=== PATIENT | female | born 1970 | race Caucasian/White ===

== ENCOUNTER 2017-11-02 09:19 | Day surgery (SDC) | payer OTHER ==
[2017-10-27 10:44] LABS: APPEARANCE,URINE CLOUDY; BILIRUBIN,URINE NEGATIVE (NEGATIVE); COLOR,URINE YELLOW; GLUCOSE, URINE NEGATIVE (NEGATIVE); KETONES,URINE NEGATIVE (NEGATIVE); LEUKOCYTE ESTERASE,URINE NEGATIVE (NEGATIVE); NITRITE,URINE POSITIVE (NEGATIVE); PROTEIN,URINE NEGATIVE (NEGATIVE); URINE SPECIFIC GRAVITY 1.016; UROBILINOGEN,URINE NEGATIVE mg/dL (<2.0)
[2017-10-27 10:44] LABS: HEMATOCRIT 40.8 % (36.0-47.0); HEMOGLOBIN 13.7 g/dL (12.0-15.5); MEAN CORPUSCULAR HEMOGLOBIN 29.3 pg (27.0-33.4); MEAN CORPUSCULAR HGB CONC 33.6 g/dL (32.0-36.0); MEAN CORPUSCULAR VOLUME 87 fl (80-97); PLATELET COUNT 260 10^3/uL (150-450); RED BLOOD COUNT 4.67 10^6/uL (3.72-5.28); WHITE BLOOD COUNT 7.2 10^3/uL (4.0-10.5)
[2017-10-27 11:09] LABS: ALANINE AMINOTRANSFERASE 22 U/L (9-52); ALBUMIN 4.5 g/dL (3.5-5.0); ALKALINE PHOSPHATASE 74 U/L (38-126); ANION GAP 14 (5-19); ASPARTATE AMINO TRANSFERASE 21 U/L (14-36); BILIRUBIN,DIRECT 0.3 mg/dL (0.0-0.4); BILIRUBIN,TOTAL 0.4 mg/dL (0.2-1.3); BLOOD UREA NITROGEN 13 mg/dL (7-20); CARBON DIOXIDE 26 mmol/L (22-30); CHLORIDE 104 mmol/L (98-107); GLUCOSE 82 mg/dL (75-110); POTASSIUM 4.9 mmol/L (3.6-5.0); SODIUM 144.1 mmol/L (137-145); TOTAL PROTEIN 7.5 g/dL (6.3-8.2)
[~2017-11-02 09:19] MED LIST: CEFAZOLIN 1 GM/D5W RTU 1 GM/50 ML RTUPB IV PRN; LACTATED RINGERS 1000 ML IV PRN; LIDOCAINE 0.5% INJ-PF (5 MG/ML) 50 ML SDV SUBCUT PRN; LIDOCAINE 1%/EPINEPHRINE INJ 20 ML VIAL ONE; MAGNESIUM CITRATE 296 ML BOTTLE PO ONE; RINGERS SOLUTION,LACTATED 1,000 ML IV PRN; SCOPOLAMINE HYDROBROMIDE 1.5 MG PATCH.TD72 TD PRN
[2017-11-02] MEDS ORDERED: ACETAMINOPHEN 1,000 MG/100 ML RTUPB IV ONE ×2 (10:21→19:00)
[2017-11-02] MEDS ORDERED: FENTANYL CITRATE INJ/PF 250 MCG/5 ML AMPULE ONE (10:21)
[2017-11-02] MEDS ORDERED: PROPOFOL INJ 200 MG/20 ML VIAL IV ONE (10:21)
[2017-11-02] MEDS ORDERED: MIDAZOLAM 2 MG/2 ML INJ ONE (10:21)
[2017-11-02] MEDS ORDERED: ESTROGENS,CONJUGATED 0.625 MG/1 GM 30 GM TUBE PV PRN (11:25)
[2017-11-02] MEDS ORDERED: FENTANYL CITRATE INJ/PF 100 MCG/2 ML AMPUL IV PRN ×3 (11:27)
[2017-11-02] MEDS ORDERED: PROMETHAZINE HCL INJ 25 MG/1 ML VIAL IV PRN ×2 (11:27)
[2017-11-02] MEDS ORDERED: OXYCODONE-ACETAMINOPHEN 5-325 MG TABLET PO PRN ×3 (11:27→14:23)
[2017-11-02] MEDS ORDERED: MEPERIDINE HCL/PF INJ 25 MG/1 ML DISP.SYRIN IV PRN (11:27)
[2017-11-02] MEDS ORDERED: DIPHENHYDRAMINE HCL 50 MG/ML VIAL IV PRN (11:27)
[2017-11-02] MEDS ORDERED: MORPHINE SULFATE 10 MG/ML INJ IV PRN ×2 (11:27→14:19)
[2017-11-02] MEDS ORDERED: PROMETHAZINE HCL INJ 25 MG/1 ML VIAL ONE (13:18)
[2017-11-02] MEDS ORDERED: IBUPROFEN 800 MG TABLET PO PRN (14:22)
[2017-11-02] MEDS ORDERED: ROCURONIUM BROMIDE INJ 50 MG/5 ML VIAL IV ONE (15:12)
[2017-11-02] MEDS ORDERED: SUCCINYLCHOLINE CHLORIDE INJ 200 MG/10 ML VIAL ONE (15:12)
[2017-11-02] MEDS ORDERED: NEOSTIGMINE METHYLSULFATE 10 MG/10 ML VIAL ONE (15:12)
[2017-11-02] MEDS ORDERED: ONDANSETRON HCL INJ/PF 4 MG/2 ML SDV ONE ×2 (15:12→16:44)
[2017-11-02] MEDS ORDERED: DEXAMETHASONE SOD PHOSPHATE INJ 4 MG/1 ML VIAL ONE (15:12)
[2017-11-02] MEDS ORDERED: GLYCOPYRROLATE 1 MG/5 ML SYRINGE ONE (15:12)
[2017-11-02] MEDS ORDERED: ACETAMINOPHEN 1,000 MG/100 ML RTUPB IV PRN (16:49)
[2017-11-02] MEDS ORDERED: ENOXAPARIN SODIUM INJ 30 MG/0.3 ML DISP.SYRIN SUBCUT ONE (17:00)
[2017-11-02] MEDS: KETOROLAC TROMETHAMINE INJ/PF 30 MG/1 ML SDV IV SCH (17:15)
[2017-11-02] MEDS ORDERED: ONDANSETRON HCL INJ/PF 4 MG/2 ML SDV IV ONE (17:30)
--- NOTE | 2017-11-02 19:45 | OPERATIVE REPORT E ---
Operative Report NAME: UMA MOTA : 1970 AGE: 47Y DATE OF SURGERY: 11/02/2017 ROOM: 213 PREOPERATIVE DIAGNOSIS: 1. ABNORMAL UTERINE BLEEDING. 2. PELVIC PRESSURE AND PAIN. 3. SLIGHT UTEROVAGINAL PROLAPSE. POSTOPERATIVE DIAGNOSIS: 1. ABNORMAL UTERINE BLEEDING. 2. PELVIC PRESSURE AND PAIN. 3. SLIGHT UTEROVAGINAL PROLAPSE. OPERATION: Robotic-assisted total laparoscopic hysterectomy with bilateral salpingectomy. SURGEON: RASHEL FITZPATRICK M.D. ANESTHESIA: RENETTA MARIE M.D. with general. FINDINGS: 1. A 14-16 week sized uterus that has a boggy, adenomyosis appearance, 2. Normal tubes and ovaries. 3. Fallopian tubes had evidence of bilateral tubal ligation. COMPLICATIONS: None. ESTIMATED BLOOD LOSS: 500 mL. TISSUE REMOVED OR ALTERED: 1. Uterus. 2. Cervix. 3. Fallopian tube x 2. PROCEDURE: Patient was taken to the operating room, prepared and draped in normal sterile fashion in a dorsal lithotomy position. Under sterile conditions, a Torres catheter was placed to gravity. A sterile speculum was then placed into the vagina and the cervix was prepped with Betadine. The cervix was grasped on the anterior lip with a single toothed tenaculum and the cervix was dilated to accommodate a large VCare. VCare was placed without difficulty and the tenaculum and speculum were removed. The gloves were changed and attention was turned to the upper portion of the case where an umbilical skin incision was made approximately 2 cm across and the underlying tissues were dissected down to the fascia. The fascia was then grasped with the 2 Kochers and excised with Osorio's and extended laterally with the Osorio's. The peritoneal cavity was entered bluntly and the GelPort was placed in the substance use fashion. A morcellation bag was then placed into the right paracolic gutter for use at the end of the case. The abdomen was insufflated with approximately 2 L of CO2 gas thru the air seal that was placed through the GelPort. The camera was introduced thru the camera port, the patient was placed into deep Trendelenburg, and the above findings were noted. Under direct visualization, two 5 mm ports were placed approximately 10 cm on either side of the umbilicus. The robot was docked and the monopolar scissors and the vessel sealer were applied to the robot and introduced into the peritoneal cavity. I then descrubbed and sat at the console where, beginning with the left adnexa, removed the left fallopian tube fragments and these were removed through the assistance port. The utero-ovarian ligament was then transected, freeing the ovary from the uterus. The round ligament was also transected using the vessel sealer and the rest of the uterine artery was coagulated and transected using the vessel sealer down to the level of the VCare located through the vaginal mucosa. The bladder flap was then started using monopolar scissors and dissected away from the cervix with blunt dissection. Turning my attention to the right adnexa, this procedure was repeated where the fallopian tube was removed with the monopolar scissors in the normal fashion and the fragments were removed through the assistance port. The utero-ovarian ligament was then transected and the uterine arteries were coagulated down to the level of the VCare located through the vaginal mucosa. The bladder flap was completed using the monopolar scissors and blunt dissection in a normal fashion. I continued to coagulate the uterine arteries on both sides bilaterally with the vessel sealer as needed until the VCare cup could be more easily located. I then began the colporrhaphy on the anterior aspect using the monopolar scissors. At one point during the colporrhaphy, it was noted that the vaginal mucosa was still quite thick so this was transected and the vessels were sealed off using the vessel sealer. I then completed the colporrhaphy using the monopolar scissors until the specimen was completely freed. Once the specimen was freed, this was placed into the posterior cul-de-sac and the instruments were changed. The Dru Needle pile driver operator was introduced as well as the *------* and the V-Loc was introduced through the assistance port. The V-Loc was then used to close the vaginal cuff in a normal fashion. The left cuff angle required an extra suture in order to become more hemostasis, as one of the vessels did appear to continue to have some bleeding. This was made hemostatic with the V-Loc and once the angle was closed, I did back suture several times to ensure good hemostasis and did maintain so. The V-Loc was then cut and the remnant was removed through the assistance port. I then inspected the ureters and found them to be both peristalsing in a normal fashion. There was no evidence of hydroureter along the path of the ureter. The morcellation bag was then located and brought down into the posterior cul-de-sac with the specimen. The morcellation bag silk suture ties were cut by the podiatrist assistant using Endo Nacho and the specimen was placed into the morcellation bag. I then rescrubbed and we undocked the robot and removed the GelPort cover and easily located the bag and brought the morcellation bag edge up through the GelPort. Then, using the C cut morcellation technique, morcellated the specimen out through the GelPort incision. Once this was completed, the morcellation bag was removed. The GelPort apparatus was also removed. The fascia was closed at this incision using 0 Vicryl and the skin was closed at all 3 incisions using 4-0 Vicryl. Patient tolerated procedure well. Sponge, lap, and needle counts were correct x2 and the patient was taken to recovery in stable condition. DICTATING PHYSICIAN: RASHEL FITZPATRICK M.D. [id number] PHY#: [id number] ID: [id number] JOB#: [id number] ACCT: [id number] cc:RASHEL FITZPATRICK M.D. >
[2017-11-03] MEDS: KETOROLAC TROMETHAMINE INJ/PF 30 MG/1 ML SDV IV SCH (02:16)
[2017-11-03 05:19] LABS: HEMATOCRIT 31.1 % (36.0-47.0); HEMOGLOBIN 10.6 g/dL (12.0-15.5); MEAN CORPUSCULAR HEMOGLOBIN 29.7 pg (27.0-33.4); MEAN CORPUSCULAR HGB CONC 34.2 g/dL (32.0-36.0); MEAN CORPUSCULAR VOLUME 87 fl (80-97); PLATELET COUNT 223 10^3/uL (150-450); RED BLOOD COUNT 3.58 10^6/uL (3.72-5.28); RED CELL DISTRIBUTION WIDTH 14.3 % (11.5-14.0); WHITE BLOOD COUNT 14.2 10^3/uL (4.0-10.5)
--- NOTE | 2017-11-03 08:24 | PDOC DISCHARGE SUMMARY ---
General - Admit/Disc Date/PCP Admission Date/Primary Care Provider: NIKHIL KENNEDY MD Discharge Date: 11/03/17 - Discharge Diagnosis (1) Abnormal uterine bleeding Is this a current diagnosis for this admission?: Yes (2) Chronic pelvic pain in female Is this a current diagnosis for this admission?: Yes (3) Uterus, adenomyosis Is this a current diagnosis for this admission?: Yes - Additional Information Home Medications: Aspirin [Aspirin 81 mg Chewable Tablet] 81 mg PO DAILY #30 tab.ec 10/14/13 Bupropion HCl [Wellbutrin Xl 300mg 24hr Tablet] 1 tab PO DAILY 10/27/17 History of Present Illness History of Present Illness: UMA MOTA is a 47 year old female Hospital Course Hospital Course: underwent RATLH w/ b/l salpingectomy. unremarkable post op course Physical Exam - Physical Exam Vital Signs: Temp Pulse Resp BP Pulse Ox 98.5 F 78 18 97/54 L 97 11/03/17 07:33 11/03/17 07:33 11/03/17 07:33 11/03/17 07:33 11/03/17 07:33 Intake & Output 11/02/17 11/03/17 11/04/17 06:59 06:59 06:59 Intake Total 3890 Output Total 1250 Balance 2640 Weight 97.7 kg General appearance: PRESENT: no acute distress, cooperative GI/Abdominal exam: PRESENT: soft, tenderness - appropriate for post op Result Laboratory Results: 11/03/17 05:07 10/27/17 09:58 11/03/17 05:07 WBC 14.2 H RBC 3.58 L Hgb 10.6 L Hct 31.1 L MCV 87 MCH 29.7 MCHC 34.2 RDW 14.3 H Plt Count 223 Plan Discharge Plan: discharge home with precautions. keep scheduled appt in 2 wks
[2017-11-03 09:17] VITALS: BP 99/54
== END 2017-11-03 09:35 | disposition home or self-care (01) ==
LOC: OROUT 09:19 → 2N 14:05 → OROUT 11-03 09:35
PROVIDERS: ATTEND Obstetrics & Gynecology
DX: N88.8 Other specified noninflammatory disorders of cervix uteri (principal); D25.1 Intramural leiomyoma of uterus; N83.8 Other noninflammatory disorders of ovary, fallopian tube and broad ligament; N93.9 Abnormal uterine and vaginal bleeding, unspecified; G89.29 Other chronic pain; R10.2 Pelvic and perineal pain; N80.0 Endometriosis of uterus; N92.6 Irregular menstruation, unspecified; N81.4 Uterovaginal prolapse, unspecified; F17.210 Nicotine dependence, cigarettes, uncomplicated; Z79.82 Long term (current) use of aspirin; Z79.899 Other long term (current) drug therapy; Z86.718 Personal history of other venous thrombosis and embolism
CPT/HCPCS: 58571; S2900; 36415; 80053; 81001; 81025; 840; 85027; 86850; 86900; 86901; 88307; 88311; J0131; J0330; J0690; J1100; J1650; J1885; J2250; J2405; J2550; J2704; J3010; J3490; J7120

== ENCOUNTER 2018-05-17 09:35 | Emergency (ER) | payer OTHER ==
--- NOTE | 2018-05-17 10:01 | ER Document Report ---
ED Medical Screen (RME) - General Chief Complaint: Abdominal Pain Stated Complaint: ABDOMINAL PAIN Time Seen by Provider: 05/17/18 09:54 TRAVEL OUTSIDE OF THE [place] IN LAST 30 DAYS: No - Related Data Allergies/Adverse Reactions: No Known Allergies Allergy (Verified 05/17/18 09:35) Past Medical History - Past Medical History Cardiac Medical History: Denies: Hx Coronary Artery Disease, Hx Heart Attack, Hx Hypertension Pulmonary Medical History: Reports: Hx Pneumonia Denies: Hx Asthma, Hx Bronchitis, Hx COPD Neurological Medical History: Denies: Hx Cerebrovascular Accident, Hx Seizures Musculoskeltal Medical History: Reports Hx Arthritis - left knee Past Surgical History: Reports: Hx Tubal Ligation - Immunizations Hx Diphtheria, Pertussis, Tetanus Vaccination: Yes History of Influenza Vaccine for 02/2017 - 07/2017 Season: No Physical Exam - Vital signs Vitals: Temp Pulse Resp BP Pulse Ox 98.9 F 70 16 125/88 H 98 05/17/18 09:37 05/17/18 09:37 05/17/18 09:37 05/17/18 09:37 05/17/18 09:37 Course - Re-evaluation Re-evalutation: 05/17/18 10:00 48-year-old female presents for evaluation of persistent upper abdominal pain over the last week which is been worsening. It is postural does worsen when she bends forward. Abdomen is diffusely tender with no focal rebound or guarding. Negative Peralta sign. I have seen and performed a rapid medical screening examination on this patient, workup has been initiated however there will require further evaluation reassessment and disposition determination from a secondary provider. - Vital Signs Vital signs: Temp Pulse Resp BP Pulse Ox 98.9 F 70 16 125/88 H 98 05/17/18 09:37 05/17/18 09:37 05/17/18 09:37 05/17/18 09:37 05/17/18 09:37 Doctor's Discharge - Discharge Referrals: NIKHIL KENNEDY MD [Primary Care Provider] - Follow up as needed
[2018-05-17 10:41] LABS: APPEARANCE,URINE SLIGHTLY-CLOUDY; BILIRUBIN,URINE NEGATIVE (NEGATIVE); COLOR,URINE YELLOW; GLUCOSE, URINE NEGATIVE (NEGATIVE); KETONES,URINE NEGATIVE (NEGATIVE); LEUKOCYTE ESTERASE,URINE NEGATIVE (NEGATIVE); NITRITE,URINE NEGATIVE (NEGATIVE); PROTEIN,URINE NEGATIVE (NEGATIVE); URINE SPECIFIC GRAVITY 1.009; UROBILINOGEN,URINE NEGATIVE mg/dL (<2.0)
[2018-05-17 10:44] LABS: ABSOLUTE BASOPHILS # (AUTO) 0.1 10^3/uL (0.0-0.2); ABSOLUTE EOSINOPHILS # (AUTO) 0.2 10^3/uL (0.0-0.6); ABSOLUTE LYMPHOCYTES (AUTO) 2.3 10^3/uL (0.5-4.7); ABSOLUTE MONOCYTES (AUTO) 0.7 10^3/uL (0.1-1.4); ABSOLUTE NEUT (AUTO) 6.8 10^3/uL (1.7-8.2); BASOPHILS % (AUTO) 0.6 % (0-2); EOSINOPHILS % (AUTO) 1.6 % (0-6); HEMATOCRIT 41.3 % (36.0-47.0); LYMPHOCYTES % (AUTO) 23.3 % (13-45); MEAN CORPUSCULAR HEMOGLOBIN 29.3 pg (27.0-33.4); MEAN CORPUSCULAR HGB CONC 33.9 g/dL (32.0-36.0); MEAN CORPUSCULAR VOLUME 87 fl (80-97); MONOCYTES % (AUTO) 6.7 % (3-13); PLATELET COUNT 228 10^3/uL (150-450); RED BLOOD COUNT 4.78 10^6/uL (3.72-5.28); SEGMENTED NEUTROPHILS % (AUTO) 67.8 % (42-78); TOTAL CELLS COUNTED % (AUTO) 100 %; WHITE BLOOD COUNT 10.1 10^3/uL (4.0-10.5)
[2018-05-17 11:00] LABS: ALANINE AMINOTRANSFERASE 17 U/L (9-52); ALBUMIN 4.2 g/dL (3.5-5.0); ALKALINE PHOSPHATASE 67 U/L (38-126); ANION GAP 6 (5-19); ASPARTATE AMINO TRANSFERASE 19 U/L (14-36); BILIRUBIN,DIRECT 0.2 mg/dL (0.0-0.4); BILIRUBIN,TOTAL 0.6 mg/dL (0.2-1.3); BLOOD UREA NITROGEN 11 mg/dL (7-20); CALCIUM 9.4 mg/dL (8.4-10.2); CARBON DIOXIDE 28 mmol/L (22-30); CHLORIDE 105 mmol/L (98-107); GLUCOSE 100 mg/dL (75-110); POTASSIUM 4.1 mmol/L (3.6-5.0); TOTAL PROTEIN 6.8 g/dL (6.3-8.2)
[2018-05-17] MEDS ORDERED: MAG HYDROX/AL HYDROX/SIMETH SUSP 30 ML UDCUP PO ONE (11:27)
[2018-05-17] MEDS ORDERED: METOCLOPRAMIDE HCL ORAL SOLN 10 MG/10 ML UDCUP PO ONE (11:27)
[2018-05-17] MEDS ORDERED: LIDOCAINE 2% VISCOUS SOLN 20 ML UDCUP PO ONE (11:27)
--- NOTE | 2018-05-17 11:28 | ER Document Report ---
ED General - General Chief Complaint: Abdominal Pain Stated Complaint: ABDOMINAL PAIN Time Seen by Provider: 05/17/18 09:54 Notes: Patient is a 48-year-old female that presents to the emergency department for chief complaint of epigastric abdominal pain. Patient reports having on and off epigastric pain she describes as sharp and aching, the last approximately 30 minutes and then go away on its own, and will come and go over periods of time, she states it is somewhat better than it has been. It has been going on for approximately 10 days now. She denies prior history of abdominal issues, denies associated nausea, vomiting, diarrhea. She states has been having normal bowel movements, denies any black or bloody stool. She also denies any recent fevers, chills, night sweats, chest pain, shortness of breath or difficulty breathing. Past Medical History: Denies chronic medical conditions Past Surgical History: Hysterectomy Social History: Admits to occasional alcohol use, denies tobacco or illicit drug use. Family History: Reviewed and noncontributory for presenting illness Allergies: Reviewed, see documented allergy list. REVIEW OF SYSTEMS: Other than noted above, the 12 point review of systems was reviewed with the patient and were negative, all pertinent findings are included in the HPI. PHYSICAL EXAMINATION: Vital signs reviewed, nursing noted reviewed. GENERAL: Well-appearing, well-nourished and in no acute distress. HEAD: Atraumatic, normocephalic. EYES: Eyes appear normal, extraocular movements intact, sclera anicteric, conjunctiva are normal. ENT: nares patent, oropharynx clear without exudates. Moist mucous membranes. NECK: Normal range of motion, supple without lymphadenopathy LUNGS: Breath sounds clear to auscultation bilaterally and equal. No wheezes rales or rhonchi. HEART: Regular rate and rhythm without murmurs ABDOMEN: Soft, obese, with mild epigastric tenderness with palpation, normoactive bowel sounds. No rebound, guarding, or rigidity. No masses appreciated. EXTREMITIES: Nontender, good range of motion, no pitting or edema. NEUROLOGICAL: No focal neurological deficits. Moves all extremities spontaneously Motor and sensory grossly intact on exam. PSYCH: Normal mood, normal affect. SKIN: Warm, Dry, normal turgor, no rashes or lesions noted on exposed skin TRAVEL OUTSIDE OF THE [place] IN LAST 30 DAYS: No - Related Data Allergies/Adverse Reactions: No Known Allergies Allergy (Verified 05/17/18 09:35) Past Medical History - Social History Smoking Status: Never Smoker Frequency of alcohol use: Social Drug Abuse: None Family History: CAD Patient has suicidal ideation: No Patient has homicidal ideation: No - Past Medical History Cardiac Medical History: Denies: Hx Coronary Artery Disease, Hx Heart Attack, Hx Hypertension Pulmonary Medical History: Reports: Hx Pneumonia Denies: Hx Asthma, Hx Bronchitis, Hx COPD Neurological Medical History: Denies: Hx Cerebrovascular Accident, Hx Seizures Renal/ Medical History: Denies: Hx Peritoneal Dialysis Musculoskeletal Medical History: Reports Hx Arthritis - left knee Past Surgical History: Reports: Hx Tubal Ligation - Immunizations Hx Diphtheria, Pertussis, Tetanus Vaccination: Yes Physical Exam - Vital signs Vitals: Temp Pulse Resp BP Pulse Ox 98.9 F 70 16 125/88 H 98 05/17/18 09:37 05/17/18 09:37 05/17/18 09:37 05/17/18 09:37 05/17/18 09:37 Course - Re-evaluation Re-evalutation: Patient seen and examined vital signs reviewed. Laboratory data and imaging were ordered as appropriate for the patient's presenting symptoms and complaint, with consideration of any critical or life threatening conditions that may be associated with their obtained history and exam as noted above. Patient was treated with GI cocktail Results were reviewed when available and demonstrated unremarkable blood work, x-ray of the abdomen was unremarkable as well nonspecific bowel gas pattern The patient was re-evaluated and was improved and stable Evaluation was most consistent with epigastric abdominal pain, possible gastritis versus peptic ulcer disease, no evidence of active bleeding, or perforation at this time, will prescribe omeprazole, have her follow-up with gastroenterology if her symptoms persist, patient was agreeable with this plan of care. Results were discussed with the patient at this point, after careful consideration I feel that that patient can be discharged from the emergency department, the patient was educated treatments and reasons to return to the emergency department based on their presumed diagnosis as noted above, they were advised to followup with a primary care physician in 2-3 days. Patient was agreeable to plan of care. *Note is created using voice recognition software and may contain spelling, syntax or grammatical errors. Laboratory 05/17/18 05/17/18 05/17/18 10:05 10:26 10:26 WBC 10.1 RBC 4.78 Hgb 14.0 Hct 41.3 MCV 87 MCH 29.3 MCHC 33.9 RDW 14.0 Plt Count 228 Seg Neutrophils % 67.8 Lymphocytes % 23.3 Monocytes % 6.7 Eosinophils % 1.6 Basophils % 0.6 Absolute Neutrophils 6.8 Absolute Lymphocytes 2.3 Absolute Monocytes 0.7 Absolute Eosinophils 0.2 Absolute Basophils 0.1 Sodium 139.0 Potassium 4.1 Chloride 105 Carbon Dioxide 28 Anion Gap 6 BUN 11 Creatinine 0.60 Est GFR ( Amer) > 60 Est GFR (Non-Af Amer) > 60 Glucose 100 Calcium 9.4 Total Bilirubin 0.6 Direct Bilirubin 0.2 Neonat Total Bilirubin Not Reportable Neonat Direct Bilirubin Not Reportable Neonat Indirect Bili Not Reportable AST 19 ALT 17 Alkaline Phosphatase 67 Total Protein 6.8 Albumin 4.2 Lipase 89.0 Urine Color YELLOW Urine Appearance SLIGHTLY-CLOUDY Urine pH 8.0 Ur Specific [place] 1.009 Urine Protein NEGATIVE Urine Glucose (UA) NEGATIVE Urine Ketones NEGATIVE Urine Blood NEGATIVE Urine Nitrite NEGATIVE Urine Bilirubin NEGATIVE Urine Urobilinogen NEGATIVE Ur Leukocyte Esterase NEGATIVE Urine WBC (Auto) 0 Urine RBC (Auto) 0 Urine Bacteria (Auto) 3+ Squamous Epi Cells Auto 1 Urine Mucus (Auto) RARE Urine Ascorbic Acid NEGATIVE Urine HCG, Qual NEGATIVE Abdomen X-Ray 05/17/18 11:28 IMPRESSION: NO RADIOGRAPHIC EVIDENCE FOR ACUTE ABDOMINAL DISEASE. - Vital Signs Vital signs: Temp Pulse Resp BP Pulse Ox 98.4 F 70 18 127/83 H 99 05/17/18 12:33 05/17/18 12:33 05/17/18 12:33 05/17/18 12:33 05/17/18 12:33 - Laboratory Result Diagrams: 05/17/18 10:26 05/17/18 10:26 Discharge - Discharge Clinical Impression: Epigastric pain Condition: Stable Disposition: HOME, SELF-CARE Instructions: Abdominal Pain ([facility]) Additional Instructions: Please follow-up with gastroenterology, and take the prescribed omeprazole 40 mg daily, to see if this will help with your symptoms. you ultimately may need what is called an EGD, or upper scope to see if you have inflammation or ulcers. Prescriptions: RX: Omeprazole 40 mg PO DAILY #30 capsule. Referrals: NIKHIL KENNEDY MD [Primary Care Provider] - Follow up as needed EMILY ORTIZ MD [ACTIVE STAFF] - Follow up in 3-5 days (gastroenterology )
--- NOTE | 2018-05-17 12:22 | RADIOLOGY REPORT (SQ) ---
EXAM DESCRIPTION: ABDOMEN 2 VIEWS COMPLETED DATE/TIME: 05/17/2018 12:10 pm REASON FOR STUDY: abdominal pain COMPARISON: Chest films 10/13/2013 NUMBER OF VIEWS: Two views. TECHNIQUE: Supine and upright radiographic images of the abdomen acquired. LIMITATIONS: None. FINDINGS: FREE AIR: None. No abnormal gas collections. LUNG BASES: Clear. BOWEL GAS PATTERN: Nonobstructive pattern. No dilated loops or air fluid levels. CALCIFICATIONS: No suspicious calcifications. Multiple calcified pelvic phleboliths SOFT TISSUES: No gross mass or suggestion of organomegaly. HARDWARE: None in the abdomen. BONES: No acute fracture. No worrisome bone lesions. OTHER: No other significant finding. IMPRESSION: NO RADIOGRAPHIC EVIDENCE FOR ACUTE ABDOMINAL DISEASE. TECHNICAL DOCUMENTATION: JOB ID: [id number] [employer]- All Rights Reserved Reading location - IP/workstation name: [email or web address]
[2018-05-17 12:36] VITALS: BP 127/83
== END 2018-05-17 12:40 | disposition home or self-care (01) ==
LOC: ER 09:35
DX: R10.13 Epigastric pain (principal); Z90.710 Acquired absence of both cervix and uterus; Z98.51 Tubal ligation status
CPT/HCPCS: 99284; 36415; 83690; 85025; 81025; 80053; 81001; 74019; J3490